=== PATIENT | female | born 1995 | race American Indian/Alaskan Native ===

== ENCOUNTER 2022-04-05 12:40 | Emergency (ER) | payer SELFPAY ==
[2022-04-05] MEDS ORDERED: Ketorolac 30 MG/ML SDV IM ONE (14:37)
== END 2022-04-05 16:02 | disposition home or self-care (01) ==
LOC: JD.ED 12:40
DX: S89.91XA Unspecified injury of right lower leg, initial encounter (principal); W10.8XXA Fall (on) (from) other stairs and steps, initial encounter
CPT/HCPCS: 73564; 96372; 99283; J1885

== ENCOUNTER 2022-05-14 06:28 | Emergency (ER) | payer SELFPAY ==
[2022-05-14] MEDS ORDERED: HYDROmorphone 0.5 MG/0.5 ML Syringe IVPUSH ONE (07:17)
[2022-05-14] MEDS ORDERED: Metoclopramide 10 MG/2 ML SDV IVPUSH ONE (07:17)
[2022-05-14] MEDS ORDERED: cefTRIAXone 2 GM in Sodium Chloride 0.9% 100 ML IV ONE (07:17)
[2022-05-14] MEDS ORDERED: Dextrose 5%-0.9% NaCl 1,000 ML IV SCH (07:30)
[2022-05-14] MEDS ORDERED: Ketorolac 30 MG/ML SDV IVPUSH SCH (07:30)
== END 2022-05-14 08:55 | disposition home or self-care (01) ==
LOC: JD.ED 06:28
DX: L03.211 Cellulitis of face (principal); K04.7 Periapical abscess without sinus; E61.1 Iron deficiency; Z86.16 Personal history of COVID-19
CPT/HCPCS: 36415; 85025; 86140; 96361; 96365; 96375; 99283; J0696; J1170; J1885; J2765; J7042

== ENCOUNTER 2022-05-19 14:18 | Emergency (ER) | payer SELFPAY ==
[2022-05-19] MEDS ORDERED: valACYclovir 1,000 MG Tab PO STA (14:54)
[2022-05-19] MEDS ORDERED: Gabapentin 300 MG Cap PO ONE (14:54)
== END 2022-05-19 15:35 | disposition home or self-care (01) ==
LOC: JD.ED 14:18
DX: B02.9 Zoster without complications (principal); Z79.899 Other long term (current) drug therapy; Z86.16 Personal history of COVID-19
CPT/HCPCS: 99282; A9270

== ENCOUNTER 2023-11-02 17:54 | Emergency (ER) | payer SELFPAY ==
[2023-11-02] MEDS ORDERED: Amoxicillin/Clavulanate K 875-125 MG Tab PO ONE (18:29)
[2023-11-02] MEDS ORDERED: Ketorolac 60 MG/2 ML SDV IM ONE (18:29)
== END 2023-11-02 18:50 | disposition home or self-care (01) ==
LOC: JD.ED 17:54
DX: K04.7 Periapical abscess without sinus (principal); Z86.16 Personal history of COVID-19
CPT/HCPCS: 96372; 99282; 99283; A9270-GY; J1885

== ENCOUNTER 2024-05-09 19:42 | Emergency (ER) | payer SELFPAY ==
[2024-05-09] MEDS: Ketorolac 60 MG/2 ML SDV IM ONE (20:58)
[2024-05-09 21:05] LABS: BASOPHILS PERCENT AUTO 0.3 % (0.0-1.0); EOSINOPHILS ABSOLUTE AUTO 0.2 K/mm3 (0.0-0.4); EOSINOPHILS PERCENT AUTO 2.1 % (0.0-6.0); HEMATOCRIT 35.9 % (37.0-47.0); HEMOGLOBIN 12.2 gm/dl (12.0-16.0); IMMATURE GRAN ABSOLUTE AUTO 0.01 K/mm3 (0.00-0.05); IMMATURE GRAN PERCENT AUTO 0.1 % (0.0-0.4); LYMPHOCYTES ABSOLUTE AUTO 2.2 K/mm3 (1.0-4.8); LYMPHOCYTES PERCENT AUTO 31.7 % (24.0-44.0); MEAN CORPUSCULAR HEMOGLOBIN 28.6 pg (28.0-32.0); MEAN CORPUSCULAR VOLUME 84.3 fl (83.0-99.0); MEAN PLATELET VOLUME 10.9 fl (9.4-12.3); MONOCYTES ABSOLUTE AUTO 0.6 K/mm3 (0.0-0.8); MONOCYTES PERCENT AUTO 8.5 % (0.0-8.0); NEUTROPHILS PERCENT AUTO 57.3 % (41.0-71.0); PLATELET COUNT,PLT 207 K/mm3 (150-400); RED BLOOD CELL COUNT 4.26 M/mm3 (4.10-5.30); WHITE BLOOD CELL COUNT,WBC 6.98 K/mm3 (3.9-11.3)
[2024-05-09 21:30] LABS: ALANINE AMINOTRANSFERASE,ALT 18 U/L (14-59); ALBUMIN 3.6 g/dl (3.4-5.0); ALKALINE PHOSPHATASE 74 U/L (46-116); ANION GAP 10.6 (5-15); ASPARTATE AMNIOTRANSFERASE,AST 15 U/L (15-37); BILIRUBIN TOTAL 0.5 mg/dL (0.2-1.0); BLOOD UREA NITROGEN,BUN 10 mg/dL (7-18); BUN/CREATININE RATIO 14.3 (14-18); CALCIUM 8.4 mg/dL (8.5-10.1); CARBON DIOXIDE,CO2 24 mEq/L (21-32); CHLORIDE,CL 107 mEq/L (98-107); CREATININE 0.7 mg/dL (0.55-1.02); EST CRCL DRUG DOSING (CG) 85.94 mL/min; ESTIMATED GFR 121 mL/min (>60); GLUCOSE RANDOM 99 mg/dL (70-99); POTASSIUM,K 3.6 mEq/L (3.5-5.1); PROTEIN TOTAL,TP 7.1 g/dl (6.4-8.2); SODIUM,NA 138 mEq/L (136-145)
[2024-05-09 21:31] LABS: TROPONIN I HIGH SENSITIVITY < 4 pg/mL (<=51)
== END 2024-05-09 22:07 | disposition home or self-care (01) ==
LOC: JD.ED 19:42
DX: S46.911A Strain of unspecified muscle, fascia and tendon at shoulder and upper arm level, right arm, initial encounter (principal); R20.2 Paresthesia of skin; I50.9 Heart failure, unspecified; Z86.16 Personal history of COVID-19; X58.XXXA Exposure to other specified factors, initial encounter
CPT/HCPCS: 36415; 80053; 84484; 85025; 93005; 96372; 99283; J1885

== ENCOUNTER 2024-08-02 18:31 | Emergency (ER) | payer SELFPAY ==
[2024-08-02 21:02] LABS: CORONAVIRUS COVID-19 NAA NEGATIVE (NEGATIVE); INFLUENZA A NAA NEGATIVE (NEGATIVE); RESPIRATORY SYNCYTIAL VIR NAA NEGATIVE (NEGATIVE)
[2024-08-02] MEDS: Ketorolac 60 MG/2 ML SDV IM ONE (21:51)
[2024-08-02] MEDS: Acetaminophen 325 MG Tab PO ONE (21:51)
[2024-08-02] MEDS: Albuterol 6.7 GM Inhaler INH SCH (22:37)
[2024-08-02] MEDS: Albuterol 6.7 GM Inhaler INH ONE (22:37)
== END 2024-08-02 22:34 | disposition home or self-care (01) ==
LOC: JD.ED 18:31
DX: J06.9 Acute upper respiratory infection, unspecified (principal); J98.01 Acute bronchospasm; Z86.16 Personal history of COVID-19
CPT/HCPCS: 0241U; 71045; 87651; 96372; 99284; A9270; J1885; 99283

== ENCOUNTER 2025-05-17 19:28 | Emergency (ER) | payer SELFPAY ==
[2025-05-17] MEDS ORDERED: Sodium Chloride 0.9% 10 ML Syringe FLUSH PRN (19:46)
[2025-05-17 20:16] LABS: BASOPHILS ABSOLUTE AUTO 0.0 K/mm3 (0.0-0.2); BASOPHILS PERCENT AUTO 0.1 % (0.0-1.0); EOSINOPHILS ABSOLUTE AUTO 0.1 K/mm3 (0.0-0.4); EOSINOPHILS PERCENT AUTO 1.4 % (0.0-6.0); IMMATURE GRAN ABSOLUTE AUTO 0.03 K/mm3 (0.00-0.05); IMMATURE GRAN PERCENT AUTO 0.3 % (0.0-0.4); LYMPHOCYTES ABSOLUTE AUTO 1.8 K/mm3 (1.0-4.8); LYMPHOCYTES PERCENT AUTO 19.4 % (24.0-44.0); MEAN PLATELET VOLUME 11.4 fl (9.4-12.3); MONOCYTES ABSOLUTE AUTO 0.7 K/mm3 (0.0-0.8); MONOCYTES PERCENT AUTO 7.6 % (0.0-8.0); NEUTROPHILS ABSOLUTE AUTO 6.6 K/mm3 (1.8-7.7); NEUTROPHILS PERCENT AUTO 71.2 % (41.0-71.0); NRBC ABSOLUTE 0.00 (0.00-0.02); NRBC PERCENT 0.0 % (0.0-0.2); PLATELET COUNT,PLT 203 K/mm3 (150-400); RED BLOOD CELL COUNT 4.41 M/mm3 (4.10-5.30); WHITE BLOOD CELL COUNT,WBC 9.21 K/mm3 (3.9-11.3)
[2025-05-17 20:37] LABS: A/G RATIO 0.9 (1-2); ALANINE AMINOTRANSFERASE,ALT 23.0 U/L (14-59); ASPARTATE AMNIOTRANSFERASE,AST 16.0 U/L (15-37); BILIRUBIN TOTAL 0.3 mg/dL (0.2-1.0); BLOOD UREA NITROGEN,BUN 7.0 mg/dL (7-18); CARBON DIOXIDE,CO2 24.0 mEq/L (21-32); CHLORIDE,CL 104.0 mEq/L (98-107); CREATININE 0.4 mg/dL (0.55-1.02); EST CRCL DRUG DOSING (CG) 149.06 mL/min; ESTIMATED GFR 137.0 mL/min (>60); GLUCOSE RANDOM 87.0 mg/dL (70-99); POTASSIUM,K 3.4 mEq/L (3.5-5.1); PROTEIN TOTAL,TP 7.1 g/dl (6.4-8.2); SODIUM,NA 137.0 mEq/L (136-145)
== END 2025-05-17 22:10 | disposition home or self-care (01) ==
LOC: JD.ED 19:28
DX: O34.81 Maternal care for other abnormalities of pelvic organs, first trimester (principal); N83.201 Unspecified ovarian cyst, right side; Z86.16 Personal history of COVID-19; Z3A.10 10 weeks gestation of pregnancy
CPT/HCPCS: 36415; 76705; 76817; 80053; 85025; 86140; 99284; A9270; 99283

== ENCOUNTER 2025-06-09 13:59 | Emergency (ER) | payer SELFPAY ==
[2025-06-09 14:50] LABS: BASOPHILS ABSOLUTE AUTO 0.0 K/mm3 (0.0-0.2); BASOPHILS PERCENT AUTO 0.2 % (0.0-1.0); EOSINOPHILS ABSOLUTE AUTO 0.1 K/mm3 (0.0-0.4); EOSINOPHILS PERCENT AUTO 0.9 % (0.0-6.0); IMMATURE GRAN ABSOLUTE AUTO 0.04 K/mm3 (0.00-0.05); IMMATURE GRAN PERCENT AUTO 0.4 % (0.0-0.4); LYMPHOCYTES ABSOLUTE AUTO 1.6 K/mm3 (1.0-4.8); LYMPHOCYTES PERCENT AUTO 15.9 % (24.0-44.0); MEAN PLATELET VOLUME 11.4 fl (9.4-12.3); MONOCYTES ABSOLUTE AUTO 0.8 K/mm3 (0.0-0.8); MONOCYTES PERCENT AUTO 7.8 % (0.0-8.0); NEUTROPHILS ABSOLUTE AUTO 7.7 K/mm3 (1.8-7.7); NEUTROPHILS PERCENT AUTO 74.8 % (41.0-71.0); NRBC ABSOLUTE 0.00 (0.00-0.02); NRBC PERCENT 0.0 % (0.0-0.2); PLATELET COUNT,PLT 197 K/mm3 (150-400); RED BLOOD CELL COUNT 4.19 M/mm3 (4.10-5.30); WHITE BLOOD CELL COUNT,WBC 10.23 K/mm3 (3.9-11.3)
[2025-06-09 15:19] LABS: A/G RATIO 0.8 (1-2); ALANINE AMINOTRANSFERASE,ALT 37 U/L (14-59); ASPARTATE AMNIOTRANSFERASE,AST 36 U/L (15-37); BILIRUBIN TOTAL 0.4 mg/dL (0.2-1.0); BLOOD UREA NITROGEN,BUN 8 mg/dL (7-18); CARBON DIOXIDE,CO2 22 mEq/L (21-32); CHLORIDE,CL 105 mEq/L (98-107); CREATININE 0.6 mg/dL (0.55-1.02); EST CRCL DRUG DOSING (CG) 99.37 mL/min; ESTIMATED GFR 125 mL/min (>60); GLUCOSE RANDOM 89 mg/dL (70-99); POTASSIUM,K 3.3 mEq/L (3.5-5.1); PROTEIN TOTAL,TP 6.9 g/dl (6.4-8.2); SODIUM,NA 136 mEq/L (136-145)
[2025-06-09] MEDS: Ondansetron 4 MG/2 ML SDV IVPUSH ONE (15:27)
[2025-06-09 15:33] LABS: TROPONIN I HIGH SENSITIVITY < 4 pg/mL (<=51)
[2025-06-09 15:56] LABS: APPEARANCE,URINE CLEAR (Clear); GLUCOSE,URINE NEGATIVE (Negative); OCCULT BLOOD,URINE TRACE-INTACT (Negative)
[2025-06-09 16:13] LABS: BUPRENORPHINE SCREEN,URINE NEGATIVE (CUTOFF=10); METHADONE SCREEN, URINE NEGATIVE (CUTOFF=200); METHAMPHETAMINES SCREEN, URINE NEGATIVE (CUTOFF=500); OXYCODONE SCREEN,URINE NEGATIVE (CUT0FF=100); THC SCREEN,URINE 20 NG/ML NEGATIVE (CUTOFF=50)
[2025-06-09 16:14] LABS: AMPHETAMINES SCREEN, URINE NEGATIVE (CUTOFF=500)
[2025-06-09] MEDS: Potassium Chloride 20 MEQ Tab.ER PO ONE (17:08)
== END 2025-06-09 17:15 | disposition home or self-care (01) ==
LOC: JD.ED 13:59
DX: R55 Syncope and collapse (principal); E87.6 Hypokalemia; E86.9 Volume depletion, unspecified; I50.9 Heart failure, unspecified; Z86.16 Personal history of COVID-19; Z88.8 Allergy status to other drugs, medicaments and biological substances
CPT/HCPCS: 36415; 76815; 80053; 80306; 81001; 83690; 83735; 84484; 85025; 87086; 93005; 96361; 96374; 99285; A9270; J2405; J7030; 93010; 99283

== ENCOUNTER 2025-07-12 17:10 | Emergency (ER) | payer SELFPAY ==
[2025-07-12 18:21] LABS: GLUCOSE,URINE TRACE (Negative); OCCULT BLOOD,URINE NEGATIVE (Negative)
[2025-07-12 18:33] LABS: APPEARANCE,URINE SLT CLOUDY (Clear)
[2025-07-12] MEDS ORDERED: Sodium Chloride 0.9% 10 ML Syringe FLUSH PRN (18:39)
[2025-07-12] MEDS: Ondansetron 4 MG/2 ML SDV IVPUSH ONE (19:10)
[2025-07-12 19:12] LABS: BASOPHILS ABSOLUTE AUTO 0.0 K/mm3 (0.0-0.2); BASOPHILS PERCENT AUTO 0.2 % (0.0-1.0); EOSINOPHILS ABSOLUTE AUTO 0.1 K/mm3 (0.0-0.4); EOSINOPHILS PERCENT AUTO 0.5 % (0.0-6.0); IMMATURE GRAN ABSOLUTE AUTO 0.04 K/mm3 (0.00-0.05); IMMATURE GRAN PERCENT AUTO 0.4 % (0.0-0.4); LYMPHOCYTES ABSOLUTE AUTO 1.1 K/mm3 (1.0-4.8); LYMPHOCYTES PERCENT AUTO 11.0 % (24.0-44.0); MEAN PLATELET VOLUME 11.0 fl (9.4-12.3); MONOCYTES ABSOLUTE AUTO 0.7 K/mm3 (0.0-0.8); MONOCYTES PERCENT AUTO 6.7 % (0.0-8.0); NEUTROPHILS ABSOLUTE AUTO 8.3 K/mm3 (1.8-7.7); NEUTROPHILS PERCENT AUTO 81.2 % (41.0-71.0); NRBC ABSOLUTE 0.00 (0.00-0.02); NRBC PERCENT 0.0 % (0.0-0.2); PLATELET COUNT,PLT 189 K/mm3 (150-400); RED BLOOD CELL COUNT 4.31 M/mm3 (4.10-5.30); WHITE BLOOD CELL COUNT,WBC 10.26 K/mm3 (3.9-11.3)
[2025-07-12 19:55] LABS: A/G RATIO 0.7 (1-2); ALANINE AMINOTRANSFERASE,ALT 37.0 U/L (14-59); ASPARTATE AMNIOTRANSFERASE,AST 27.0 U/L (15-37); BILIRUBIN TOTAL 0.4 mg/dL (0.2-1.0); BLOOD UREA NITROGEN,BUN 8.0 mg/dL (7-18); CARBON DIOXIDE,CO2 26.0 mEq/L (21-32); CHLORIDE,CL 108.0 mEq/L (98-107); CREATININE 0.7 mg/dL (0.55-1.02); EST CRCL DRUG DOSING (CG) 85.18 mL/min; ESTIMATED GFR 120.0 mL/min (>60); GLUCOSE RANDOM 75.0 mg/dL (70-99); POTASSIUM,K 4.0 mEq/L (3.5-5.1); PROTEIN TOTAL,TP 7.1 g/dl (6.4-8.2); SODIUM,NA 141.0 mEq/L (136-145)
[2025-07-12 20:00] LABS: HCG QUANTITATIVE 28763.0 mIU/mL; TROPONIN I HIGH SENSITIVITY < 4 pg/mL (<=51)
== END 2025-07-12 22:20 | disposition home or self-care (01) ==
LOC: JD.ED 17:10
DX: O99.891 Other specified diseases and conditions complicating pregnancy (principal); R55 Syncope and collapse; I50.9 Heart failure, unspecified; Z88.8 Allergy status to other drugs, medicaments and biological substances; Z86.16 Personal history of COVID-19; Z3A.18 18 weeks gestation of pregnancy
CPT/HCPCS: 36415; 76801; 80053; 81001; 83735; 84484; 84702; 85025; 87086; 93005; 96374; 99284; J2405; J7030; 99283